=== PATIENT | male | born 2000 | race African-American/Black ===

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

== ENCOUNTER 2023-06-18 12:12 | Emergency (ER) | payer SELFPAY ==
[~2023-06-18] VITALS: Ht 170.2 cm; Wt 72.5 kg
[~2023-06-18 12:12] MED LIST: AMOXICILLIN500 MG PO
[2023-06-18 12:16] VITALS: BP 128/86
[2023-06-18 12:30] VITALS: BP 121/72
[2023-06-18] MEDS ORDERED: METHOCARBAMOL500 MG PO (14:19)
[2023-06-18] MEDS ORDERED: NAPROXEN500 MG PO (14:19)
[2023-06-18 14:41] VITALS: BP 121/72
== END 2023-06-18 14:42 | disposition home or self-care (01) | DRG 556 ==
LOC: ED 12:12
DX: M25.511 Pain in right shoulder (principal)